=== PATIENT | male | born 1970 | race African-American/Black ===

== ENCOUNTER 2017-01-06 12:47 | Emergency (ER) | payer SELFPAY ==
[~2017-01-06] VITALS: Ht 165.1 cm; Wt 82.0 kg
[2017-01-06] MEDS ORDERED: ACETAMINOPHEN 325MG TABLET PO STA (13:46)
[2017-01-06] MEDS ORDERED: SODIUM CHLORIDE 0.9% 1,000 ML IV ONE (13:46)
[2017-01-06] MEDS ORDERED: KETOROLAC 30MG/ML VIAL IV STA (13:46)
[2017-01-06 14:47] LABS: CLARITY URINE TURBID (CLEAR); COLOR URINE YELLOW (YELLOW); GLUCOSE URINE NEGATIVE (NEGATIVE); KETONES URINE NEGATIVE (NEGATIVE); LEUKOCYTE ESTERASE URINE 3+ (NEGATIVE); NITRITE URINE NEGATIVE (NEGATIVE); OCCULT BLOOD URINE 2+ (NEGATIVE); PROTEIN URINE TRACE (NEGATIVE); SPECIFIC GRAVITY URINE 1.009 (1.005-1.030)
[2017-01-06 15:07] LABS: WBC URINE TNTC /hpf (0-2)
[2017-01-06 15:08] LABS: BACTERIA URINE 3+; MUCUS URINE 1+ /lpf (NONE/TRACE); SQUAMOUS EPITHELIAL CELL URINE FEW /lpf (RARE/1+)
[2017-01-06 15:20] LABS: BASOPHILS % 0.3 % (0.0-2.0); DIFFERENTIAL COMMENT 0; LYMPHOCYTES % 11.7 % (20.0-50.0); MEAN CORPUSCULAR HEMOGLOBIN 26.5 pg (28.0-32.0); MEAN CORPUSCULAR HGB CONC 33.3 g/dL (31.0-37.0); MEAN CORPUSCULAR VOLUME 79.6 fL (80.0-94.0); MEAN PLATELET VOLUME 7.8 fl (7.4-10.4); PLATELET 140 x1000/uL (130-400); RED BLOOD CELL COUNT 4.15 mill/uL (4.7-6.1); RED CELL DISTRIBUTION WIDTH 15.1 % (11.6-14.6); WHITE BLOOD COUNT 6.4 x1000/uL (4.5-11.0)
[2017-01-06 15:21] LABS: INR 1.1; PROTHROMBIN TIME 11.3 sec
[2017-01-06 15:28] LABS: ALANINE AMINOTRANSFERASE 66 IU/L (13-61); ALBUMIN 2.6 g/dL (3.4-5.0); ANION GAP 10; CALCIUM 7.3 mg/dL (8.5-10.1); CARBON DIOXIDE 28 mEq/L (21-32); CHLORIDE 102 mEq/L (98-107); INDEX HEMOLYSI 1 (1-3); INDEX ICTERIC 1 (1-4); INDEX LIPEMIC 1 (1-3); LIPASE 118 IU/L (73-393); UREA NITROGEN BLOOD 7 mg/dL (7-21); eGFR > 60 mL/min (>60)
[2017-01-06 16:03] VITALS: BP 122/76
[2017-01-06] MEDS ORDERED: CEFTRIAXONE SODIUM 1 G/VIAL IM ONE (16:15)
[2017-01-06] MEDS ORDERED: LIDOCAINE HCL 1% 20ML VIAL (Pyxis) INJ INFIL ONE (16:15)
== END 2017-01-06 16:46 | disposition home or self-care (01) ==
LOC: ER 14:08
DX: N39.0 Urinary tract infection, site not specified (principal); F17.200 Nicotine dependence, unspecified, uncomplicated
CPT/HCPCS: 36415; 80053; 81001; 83690; 85025; 85610; 96361; 96374; 96375; 99284; J0696; J1885; J3490; J7030; Z7610

== ENCOUNTER 2018-10-19 03:28 | Emergency (ER) | payer SELFPAY ==
[~2018-10-19] VITALS: Ht 165.1 cm; Wt 72.7 kg
[2018-10-19] MEDS ORDERED: KETOROLAC 30MG/ML VIAL IV STA (06:27)
[2018-10-19] MEDS ORDERED: LIDOCAINE 1%/EPI 1:100,000 10 ML VIAL IJ ONE (06:30)
[2018-10-19] MEDS ORDERED: TETANUS, DIPHTHERIA, PERTUSSIS VAC/PF 0.5ML (>7YR OLD) IM ONE (06:30)
[2018-10-19] MEDS ORDERED: LIDOCAINE HCL/EPINEPHRINE 1%-EPI 1:100,000 20 ML VIAL ONE (07:52)
[2018-10-19 09:40] VITALS: BP 122/73
[2018-10-19] MEDS ORDERED: BACITRACIN ZINC OINT UDPKT TOP ONE (09:45)
== END 2018-10-19 10:45 | disposition left against medical advice (07) ==
LOC: ER 03:28
DX: S01.81XA Laceration without foreign body of other part of head, initial encounter (principal); S09.8XXA Other specified injuries of head, initial encounter; S40.021A Contusion of right upper arm, initial encounter; E11.9 Type 2 diabetes mellitus without complications; I10 Essential (primary) hypertension; F17.200 Nicotine dependence, unspecified, uncomplicated; V03.99XA Pedestrian with other conveyance injured in collision with car, pick-up truck or van, unspecified whether traffic or nontraffic accident, initial encounter; Y93.55 Activity, bike riding; Y92.9 Unspecified place or not applicable; Z98.890 Other specified postprocedural states
CPT/HCPCS: 12002; 70450; 70486; 71045; 72125; 72170; 73030; 73070; 73100; 73120; 90471; 90715; 96374; 99284; J1885; J3490; Z7610; A4565

== ENCOUNTER 2018-12-15 07:36 | Emergency (ER) | payer SELFPAY ==
[~2018-12-15] VITALS: Ht 177.8 cm; Wt 70.0 kg
[2018-12-15] MEDS ORDERED: SODIUM CHLORIDE 0.9% 1,000 ML IV ONE (08:09)
[2018-12-15] MEDS ORDERED: ONDANSETRON HCL 4MG/2ML INJ IV STA (08:09)
[2018-12-15 08:29] LABS: BASOPHILS % 0.2 % (0.0-2.0); EOSINOPHILS % 2.4 % (0.0-5.0); HEMATOCRIT. 49.7 % (42.0-52.0); HEMOGLOBIN. 16.2 g/dL (14.0-18.0); LYMPHOCYTES % 13.2 % (20.0-50.0); MEAN CORPUSCULAR HEMOGLOBIN 24.9 pg (28.0-32.0); MEAN CORPUSCULAR VOLUME 76.6 fL (80.0-94.0); MEAN PLATELET VOLUME 8.3 fl (7.4-10.4); MONOCYTES % 6.3 % (2.0-8.0); NEUTROPHILS % 77.9 % (40.0-76.0); PLATELET 162 x1000/uL (130-400); RED BLOOD CELL COUNT 6.48 mill/uL (4.7-6.1); RED CELL DISTRIBUTION WIDTH 17.9 % (11.6-14.6)
[2018-12-15 08:32] LABS: CHLORIDE 101 mEq/L (98-107)
[2018-12-15] MEDS ORDERED: FAMOTIDINE 20MG/2ML VIAL IV NR (09:30)
[2018-12-15 11:19] VITALS: BP 125/81
== END 2018-12-15 11:23 | disposition home or self-care (01) ==
LOC: ER 07:43
DX: R11.2 Nausea with vomiting, unspecified (principal); R19.7 Diarrhea, unspecified; R10.9 Unspecified abdominal pain; I10 Essential (primary) hypertension; E11.9 Type 2 diabetes mellitus without complications
CPT/HCPCS: 36415; 80053; 80320; 83690; 85025; 85610; 96361; 96374; 96375; 99283; J2405; J3490; J7030; Z7610; G0480

== ENCOUNTER 2019-12-07 22:25 | Inpatient (IN) | payer SELFPAY ==
[~2019-12-07] VITALS: Ht 165.1 cm; Wt 91.2 kg
[2019-12-08] MEDS ORDERED: SODIUM CHLORIDE 0.9% 1,000 ML IV ONE (00:49)
[2019-12-08] MEDS ORDERED: ACETAMINOPHEN 325MG TABLET PO STA (00:49)
[2019-12-08 01:48] LABS: BASOPHILS % 0.2 % (0.0-2.0); EOSINOPHILS % 0.1 % (0.0-5.0); HEMATOCRIT. 38.4 % (42.0-52.0); HEMOGLOBIN. 12.7 g/dL (14.0-18.0); LYMPHOCYTES % 15.1 % (20.0-50.0); MEAN CORPUSCULAR HEMOGLOBIN 24.9 pg (28.0-32.0); MEAN CORPUSCULAR VOLUME 75.4 fL (80.0-94.0); MONOCYTES % 10.1 % (2.0-8.0); NEUTROPHILS % 74.5 % (40.0-76.0); PLATELET 128 x1000/uL (130-400); RED CELL DISTRIBUTION WIDTH 17.3 % (11.6-14.6)
[2019-12-08 01:54] LABS: CHLORIDE 100 mEq/L (98-107)
[2019-12-08 01:58] LABS: ETHANOL BLOOD < 10 mg/dL
[2019-12-08 02:17] LABS: CLARITY URINE CLEAR (CLEAR); COLOR URINE YELLOW (YELLOW); KETONES URINE NEGATIVE (NEGATIVE); LEUKOCYTE ESTERASE URINE NEGATIVE (NEGATIVE); NITRITE URINE NEGATIVE (NEGATIVE); OCCULT BLOOD URINE NEGATIVE (NEGATIVE); PH URINE 6.5 (4.5-8.0); PROTEIN URINE 1+ (NEGATIVE); SPECIFIC GRAVITY URINE 1.019 (1.005-1.030)
[2019-12-08 02:30] LABS: CANNABINOID URINE SCREEN NEGATIVE (NEGATIVE); METHADONE URINE SCREEN NEGATIVE (NEGATIVE); OPIATES URINE SCREEN NEGATIVE (NEGATIVE); PHENCYCLIDINE URINE SCREEN PRESUMTIVE POSITIVE (NEGATIVE)
[2019-12-08] MEDS ORDERED: OSELTAMIVIR 75MG CAPSULE PO ONE (02:30)
[2019-12-08 02:31] LABS: *AMPHETAMINES SCREEN URINE PRESUMTIVE POSITIVE (NEGATIVE); *BARBITURATES SCREEN URINE NEGATIVE (NEGATIVE); *BENZODIAZEPINES SCREEN URINE NEGATIVE (NEGATIVE); *COCAINE SCREEN URINE NEGATIVE (NEGATIVE)
[2019-12-09] VITALS (8 sets, daily range): BP systolic 101–142; BP diastolic 62–94
[2019-12-09] MEDS ORDERED: ACETAMINOPHEN 325MG TABLET PO PRN (00:45)
[2019-12-09] MEDS ORDERED: HYDROCODONE/ACETAMINOPHEN 5/325MG TABLET PO PRN (00:45)
[2019-12-09] MEDS ORDERED: ALBUTEROL (0.083%) 2.5MG/3ML NEB HHN PRN (02:00)
[2019-12-09] MEDS: OSELTAMIVIR 75MG CAPSULE PO SCH ×2 (08:43→21:05)
[2019-12-09] MEDS: AZITHROMYCIN 500 MG TABLET PO SCH (08:43)
[2019-12-10] VITALS: BP 120/79
[2019-12-10 04:00] VITALS: BP 115/79
[2019-12-10 08:00] VITALS: BP 111/71
[2019-12-10] MEDS: OSELTAMIVIR 75MG CAPSULE PO SCH ×2 (09:18→20:46)
[2019-12-10] MEDS: AZITHROMYCIN 500 MG TABLET PO SCH (09:19)
[2019-12-10 11:00] VITALS: BP 112/65
[2019-12-10 16:00] VITALS: BP 118/78
[2019-12-10 20:00] VITALS: BP 131/75
[2019-12-11] VITALS: BP 120/79
[2019-12-11 04:00] VITALS: BP 104/63
[2019-12-11 07:53] VITALS: BP 124/79
[2019-12-11] MEDS: OSELTAMIVIR 75MG CAPSULE PO SCH ×2 (08:28→19:53)
[2019-12-11] MEDS: AZITHROMYCIN 500 MG TABLET PO SCH (08:28)
[2019-12-11 12:00] VITALS: BP 126/85
[2019-12-11 16:00] VITALS: BP 112/76
[2019-12-11 19:53] VITALS: BP 109/69
[2019-12-12] VITALS: BP 101/70
[2019-12-12 04:00] VITALS: BP 114/70
[2019-12-12 08:00] VITALS: BP 126/82
[2019-12-12] MEDS: AZITHROMYCIN 500 MG TABLET PO SCH (08:57)
[2019-12-12] MEDS: OSELTAMIVIR 75MG CAPSULE PO SCH ×2 (08:57→21:36)
[2019-12-12 12:00] VITALS: BP 106/73
[2019-12-12 16:00] VITALS: BP 120/72
[2019-12-12 19:38] VITALS: BP 116/73
[2019-12-13] VITALS: BP 120/80
[2019-12-13 04:00] VITALS: BP 122/60
[2019-12-13 08:05] VITALS: BP 133/85
[2019-12-13] MEDS: AZITHROMYCIN 500 MG TABLET PO SCH (08:40)
[2019-12-13] MEDS: OSELTAMIVIR 75MG CAPSULE PO SCH ×2 (08:42→20:29)
[2019-12-13 12:00] VITALS: BP 118/73
[2019-12-13 16:00] VITALS: BP 117/74
[2019-12-13 20:01] VITALS: BP 143/78
[2019-12-14] VITALS: BP 115/81
[2019-12-14 08:00] VITALS: BP 108/69
[2019-12-14] MEDS: OSELTAMIVIR 75MG CAPSULE PO SCH ×2 (08:04→21:39)
[2019-12-14] MEDS: AZITHROMYCIN 500 MG TABLET PO SCH (08:04)
[2019-12-14 12:00] VITALS: BP 109/68
[2019-12-14 16:00] VITALS: BP 103/61
[2019-12-14] MEDS: QUETIAPINE FUMARATE 50MG TABLET PO SCH (21:39)
[2019-12-14 21:46] VITALS: BP 118/94
[2019-12-15] VITALS: BP 101/57
[2019-12-15 04:00] VITALS: BP 105/53
[2019-12-15 07:00] VITALS: BP 99/67
[2019-12-15] MEDS: QUETIAPINE FUMARATE 50MG TABLET PO SCH (08:36)
[2019-12-15] MEDS: OSELTAMIVIR 75MG CAPSULE PO SCH ×2 (08:37→20:43)
[2019-12-15] MEDS: AZITHROMYCIN 500 MG TABLET PO SCH (08:37)
[2019-12-15 12:00] VITALS: BP 100/66
[2019-12-15 16:00] VITALS: BP 111/65
[2019-12-15 20:00] VITALS: BP 105/62
[2019-12-16] VITALS: BP 111/73
[2019-12-16 04:00] VITALS: BP 115/78
[2019-12-16 07:28] VITALS: BP 123/83
[2019-12-16] MEDS: OSELTAMIVIR 75MG CAPSULE PO SCH (08:59)
[2019-12-16] MEDS: QUETIAPINE FUMARATE 50MG TABLET PO SCH (08:59)
[2019-12-16] MEDS: AZITHROMYCIN 500 MG TABLET PO SCH (09:00)
[2019-12-16 12:11] VITALS: BP 93/51
[2019-12-16 16:24] VITALS: BP 103/63
[2019-12-16 20:00] VITALS: BP 105/66
[2019-12-17] VITALS: BP 124/75
[2019-12-17 04:00] VITALS: BP 126/80
[2019-12-17 08:00] VITALS: BP 112/65
[2019-12-17] MEDS: QUETIAPINE FUMARATE 50MG TABLET PO SCH (08:47)
[2019-12-17 12:00] VITALS: BP 106/52
[2019-12-17 16:00] VITALS: BP 110/68
[2019-12-17 20:00] VITALS: BP 104/57
[2019-12-18] VITALS: BP 114/78
[2019-12-18 04:00] VITALS: BP 96/61
[2019-12-18 08:00] VITALS: BP 124/78
[2019-12-18 09:28] VITALS: BP 124/78
[2019-12-18] MEDS: QUETIAPINE FUMARATE 50MG TABLET PO SCH (09:42)
[2019-12-18 11:50] VITALS: BP 107/62
[2019-12-18 15:30] VITALS: BP 119/73
[2019-12-19 04:00] VITALS: BP 123/76
[2019-12-19] MEDS: QUETIAPINE FUMARATE 50MG TABLET PO SCH (09:21)
[2019-12-19] MEDS ORDERED: HALOPERIDOL 5MG TABLET PO PRN (12:45)
[2019-12-19] MEDS: LORAZEPAM 0.5MG TABLET PO PRN (18:04)
[2019-12-19] MEDS: BENZTROPINE MESYLATE 1MG TABLET PO SCH (20:22)
[2019-12-20] MEDS: LORAZEPAM 0.5MG TABLET PO PRN (04:25)
[2019-12-20] MEDS: BENZTROPINE MESYLATE 1MG TABLET PO SCH (08:43)
[2019-12-20] MEDS: QUETIAPINE FUMARATE 50MG TABLET PO SCH (08:43)
== END 2019-12-20 19:23 | disposition left against medical advice (07) | DRG 144 ==
LOC: ER 22:25 → 7EST 12-08 04:55 → ENRESERV 12-08 19:00 → 5WST 12-10 10:43 → 6EST 12-19 11:28
PROVIDERS: ADMIT Internal Medicine; ATTEND Internal Medicine
DX: J68.0 Bronchitis and pneumonitis due to chemicals, gases, fumes and vapors (principal); J96.00 Acute respiratory failure, unspecified whether with hypoxia or hypercapnia; E66.01 Morbid (severe) obesity due to excess calories; E87.1 Hypo-osmolality and hyponatremia; D64.9 Anemia, unspecified; E11.9 Type 2 diabetes mellitus without complications; F12.90 Cannabis use, unspecified, uncomplicated; F15.90 Other stimulant use, unspecified, uncomplicated; F16.90 Hallucinogen use, unspecified, uncomplicated; F17.210 Nicotine dependence, cigarettes, uncomplicated; F32.9 Major depressive disorder, single episode, unspecified; I10 Essential (primary) hypertension; J20.9 Acute bronchitis, unspecified; Z20.828 Contact with and (suspected) exposure to other viral communicable diseases; R45.850 Homicidal ideations; R45.851 Suicidal ideations; Z96.651 Presence of right artificial knee joint; J11.1 Influenza due to unidentified influenza virus with other respiratory manifestations; Z71.51 Drug abuse counseling and surveillance of drug abuser; Z59.0 Homelessness; Z53.29 Procedure and treatment not carried out because of patient's decision for other reasons
CPT/HCPCS: 36415; 71045; 80053; 80305; 80307; 80320; 80329; 81003; 82962; 83605; 84443; 85025; 87635; 87804; 99285; J1630; J7030; G0480; U0002

== ENCOUNTER 2020-09-05 18:10 | Emergency (ER) | payer MEDICAID ==
[~2020-09-05] VITALS: Ht 175.3 cm; Wt 100.0 kg
[2020-09-05 18:12] VITALS: BP 143/79
== END 2020-09-05 23:46 | disposition left against medical advice (07) ==
LOC: ER 18:10
DX: R50.9 Fever, unspecified (principal); R05 Cough; F15.10 Other stimulant abuse, uncomplicated; E11.9 Type 2 diabetes mellitus without complications; I10 Essential (primary) hypertension
CPT/HCPCS: 93005; 99283